=== PATIENT | female | born 1975 | race Two or more races ===

== ENCOUNTER 2018-04-13 21:26 | Emergency (ER) | payer MEDICARE ==
[~2018-04-13] VITALS: Ht 165.1 cm; Wt 66.7 kg
[2018-04-13 21:33] VITALS: BP 130/89
--- NOTE | 2018-04-13 21:44 | NUR ---
PT HERE FOR BILATERAL FOOT PAIN WITH WOUNDS. PT APPEARS TO HAVE GOUT ON FEET BUT DENIES HX OF GOUT.
[2018-04-13] MEDS ORDERED: IBUPROFEN 600 MG TABLET PO ONE (22:30)
[2018-04-13] MEDS ORDERED: IBUPROFEN 200 MG TABLET ONE (22:32)
--- NOTE | 2018-04-13 22:36 | NUR ---
PT REQUESTING ROSARIO AT THIS TIME. PT INFORMED THAT THE COFFEE CART IS CLOSED AND WILL NOT OPEN UNTIL AFTER MIDNIGHT. PT GIVEN OTHER SNACKS "CRACKERS, JUICE" AND TOOK BUT REFUSED OTHER OTIONS. RN APOLOGIZED FOR THE LACK OF SNACKS AVAILBLE AT THIS TIME.
--- NOTE | 2018-04-13 22:42 | NUR ---
Patient/Caregiver given discharge instructions and they have confirmed that they understand the instructions. Patient ambulatory with steady gait.
== END 2018-04-13 22:50 | disposition home or self-care (01) ==
LOC: ED 22:23
DX: G89.11 Acute pain due to trauma (principal); M79.672 Pain in left foot; M79.671 Pain in right foot; X58.XXXA Exposure to other specified factors, initial encounter; Y93.89 Activity, other specified; Y92.89 Other specified places as the place of occurrence of the external cause; Y99.8 Other external cause status
CPT/HCPCS: 99282

== ENCOUNTER 2018-04-14 04:36 | Emergency (ER) | payer MEDICARE ==
[~2018-04-14] VITALS: Ht 165.1 cm; Wt 65.0 kg
--- NOTE | 2018-04-14 05:36 | NUR ---
PT INSTRUCTED TO VOID AND CHANGE INTO GOWN. PT CONTINUES FLIGHT OF IDEAS AT THIS TIME. PT OTHERWISE CALM.
[2018-04-14 05:46] LABS: BASOPHILS # (AUTO) 0.03 x10^3/uL (0-0.1); BASOPHILS % (AUTO) 1 % (0-1); EOSINOPHILS # (AUTO) 0.22 x10^3/uL (0-0.4); EOSINOPHILS % (AUTO) 4 % (1-7); LYMPHOCYTES # (AUTO) 1.52 x10^3/uL (1-3.4); LYMPHOCYTES % (AUTO) 27 % (22-44); MD NO; MEAN CORPUSCULAR HGB CONC 34.5 g/dL (32.4-35.8); MEAN CORPUSCULAR VOLUME 98.7 fL (80-100); MONOCYTES # (AUTO) 0.43 x10^3/uL (0.2-0.8); MONOCYTES % (AUTO) 8 % (2-9); NEUTROPHILS # (AUTO) 3.48 x10^3/uL (1.8-6.8); NEUTROPHILS % (AUTO) 61 % (42-75); PLATELET COUNT 293 x10^3/uL (130-400); RED BLOOD COUNT 3.65 x10^6/uL (3.82-5.3); RED CELL DISTRIBUTION WIDTH 12.4 % (9.6-15.2)
[2018-04-14 05:58] LABS: ALBUMIN 3.4 g/dL (3.4-5.0); ANION GAP 5 mmol/L (5-15); CHLORIDE 115 mmol/L (98-107); SALICYLATE LEVEL 2.4 mg/dL (2.8-20.0)
[2018-04-14 06:04] LABS: ACETAMINOPHEN < 2 mcg/mL (10-30); CREATININE 0.61 mg/dL (0.55-1.02)
--- NOTE | 2018-04-14 06:17 | NUR ---
PT AMBULATED TO RESTROOM WITH STEADY GAIT.
--- NOTE | 2018-04-14 06:21 | NUR ---
PT URINE COLLECTED AND SENT TO LAB
[2018-04-14 06:43] LABS: AMPHETAMINE SCREEN, URINE Negative (Negative); BARBITURATE SCREEN, URINE Negative (Negative); BENZODIAZEPINE SCREEN, URINE Negative (Negative); CANNABINOID SCREEN, URINE Negative (Negative); COCAINE SCREEN, URINE Negative (Negative); METHADONE SCREEN, URINE Negative (Negative); OPIATE SCREEN, URINE Negative (Negative)
--- NOTE | 2018-04-14 07:06 | NUR ---
Recieved beside report from DEYVI Darnell. All questions answered. Assuming care of pt. Pt asleep on [facility]. [facility]. No needs expressed.
--- NOTE | 2018-04-14 07:29 | NUR ---
soc called for consult
--- NOTE | 2018-04-14 08:26 | NUR ---
Pt speaking to SOC on tele psych monitor at this time.
--- NOTE | 2018-04-14 08:40 | NUR ---
Provided pt breakfast tray. Pt appreciative. Pt denies SI. Pt states, "I only want to harm my sister in-law. I don't have a plan."
[2018-04-14 08:41] VITALS: BP 109/75
--- NOTE | 2018-04-14 08:45 | NUR ---
ED PA aware of pt's statment.
[2018-04-14] MEDS ORDERED: OLANZAPINE 5 MG TABLET PO ONE (09:30)
[2018-04-14] MEDS ORDERED: OLANZAPINE 5 MG TABLET ONE (09:53)
--- NOTE | 2018-04-14 10:02 | NUR ---
Pt has two personal bags with PT labels identifying them, a back pack with personal labels on them, and a cell phone with a staff radiation therapist in the side left pocket of the backpack that were removed from pt and placed in ED locker for safe keeping while pt is on legal hold.
--- NOTE | 2018-04-14 10:03 | NUR ---
Provided pt medication per EMAR. Pt refused medication initally until, "The doctor came and told her she had to take them." ED PA spoke to pt about medication and legal hold. Pt stated, "okay I will take them."
--- NOTE | 2018-04-14 10:03 | NUR ---
Room secured for SI and BLAINE. MARQUES. Sitter near doorway in direct line of sight for observation. Pt resting on gurney watching TV.
--- NOTE | 2018-04-14 10:04 | NUR ---
Pt has tangential speech and fleeting thoughts. Pt unable to provide any identification information about "her [id number]." Pt states, "Segun is being the little boy today. He is my enemy. My dad is the Man today."
--- NOTE | 2018-04-14 10:32 | NUR ---
THROUGHPUT RN: Packet faxed to [facility], Carlos Juarez, Ishaan Powers, and Jovi Powers
--- NOTE | 2018-04-14 11:04 | NUR ---
THROUGHPUT RN: Confirmation fax received from [facility], [facility], [facility], [facility]
--- NOTE | 2018-04-14 11:06 | NUR ---
THROUGHPUT RN: Spoke with DEYVI Mason. Patient to receive bed on unit after hospitalist orders.
--- NOTE | 2018-04-14 11:10 | NUR ---
MAGEN RN: Patient accepted by [facility], Dr. Cohen
[2018-04-14] MEDS ORDERED: ENOXAPARIN 40 MG/0.4 ML SQ SCH (11:30)
[2018-04-14] MEDS ORDERED: LORazepam 2 MG/ML, 1ML IM PRN (11:30)
[2018-04-14] MEDS ORDERED: NICOTINE 14MG/24 HR PATCH.TD24 TD SCH (11:30)
--- NOTE | 2018-04-14 11:49 | NUR ---
THROUGHPUT RN: Report given by DEYVI Nugent to DEYVI Michael prior to transport.
--- NOTE | 2018-04-14 12:02 | NUR ---
Provided report to DEYVI Michael. All questions answered. EMS transporting pt to [facility]. Pt left with [facility] with steady gait and balance and left with all personal belongings.
[2018-04-14] MEDS ORDERED: OLANZAPINE 5 MG TABLET PO SCH (21:00)
[2018-04-15] MEDS ORDERED: OLANZAPINE 5 MG TABLET PO SCH (09:00)
== END 2018-04-14 12:07 ==
LOC: ED 06:44 → UNDOADMOB 09:31 → EDIP 09:31
DX: F32.3 Major depressive disorder, single episode, severe with psychotic features (principal); F20.9 Schizophrenia, unspecified
CPT/HCPCS: 36415; 80048; 80307; 80329; 82040; 84703; 85025; 99284; 99285; G0480

== ENCOUNTER 2020-01-30 13:03 | Emergency (ER) | payer OTHER ==
[~2020-01-30] VITALS: Ht 165.1 cm; Wt 61.3 kg
[2020-01-30 13:09] VITALS: BP 106/70
--- NOTE | 2020-01-30 13:20 | NUR ---
PATIENT WALKED BACK FROM [employer] WITH CHIEF C/O FROSTBITE. PATIENT STATES SHE KEEPS GETTING FROSTBITE ON HER TOES AND FINGERS. PATIENT ALSO REPORTS ":PEOPLE ARE FOLLOWING ME AROUND IN [place]LO[place]S AND I DON'T WANT THEIR ATTENTION THEY KEEP PUTTING STUFF IN MY NOSE, LIKE WEED AND COLOGNE, AND I CAN'T SEE ANYBODY." PATIENT COOPERATIVE, MARQUES, CALL LIGHT WITHIN REACH,. Addendum: 01/30/20 at 1325 by [email or web address] SKIN ON TOES AND FINGERS APPEAR NORMAL, NO FROSTBITE NOTED, SKIN IS INTACT.
--- NOTE | 2020-01-30 13:25 | NUR ---
WARM BLANKET PROVIDED TO PATIENT.
--- NOTE | 2020-01-30 13:35 | NUR ---
ERMD AT BEDSIDE FOR EVALUATION.
--- NOTE | 2020-01-30 13:43 | NUR ---
[facility] AT BEDSIDE FOR EVALUATION.
[2020-01-30] MEDS ORDERED: NYSTATIN TOPICAL POWDER 15GM TP PRN (14:00)
[2020-01-30] MEDS ORDERED: OLANZAPINE 5 MG TABLET ONE (14:06)
--- NOTE | 2020-01-30 14:38 | NUR ---
PATIENT RESTING IN GURNEY WITH EYES CLOSED, RESP EVEN AND UNLABORED, CALL LIGHT WITHIN REACH.
--- NOTE | 2020-01-30 14:39 | NUR ---
THROUGHPUT: PER [facility] WILL ACCEPT HER AND HER INSURANCE, PT JUST NEEDS TO BE SENT THERE. TAXI CAB SLIP GIVEN
[2020-01-30] MEDS ORDERED: OLANZAPINE 5 MG TABLET PO ONE (15:00)
--- NOTE | 2020-01-30 15:13 | NUR ---
Patient given discharge instructions and taxi voucher and they have confirmed that they understand the instructions. Patient stable and ambulatory with steady gait from ED to taxi.
== END 2020-01-30 15:14 ==
LOC: ED 13:41
DX: F20.0 Paranoid schizophrenia (principal); B35.3 Tinea pedis; Z72.9 Problem related to lifestyle, unspecified
CPT/HCPCS: 82962; 99284